=== PATIENT | female | born 1995 | race Caucasian/White ===

== ENCOUNTER 2017-01-26 23:34 | Emergency (ER) | payer SELFPAY ==
[2016-03-21 09:09] VITALS: BMI 28.7
[~2017-01-26 23:34] MED LIST: MINASTRIN FE
[2017-01-27 00:41] LABS: HEMATOCRIT 37.9 % (36.0-48.0); HEMOGLOBIN 13.1 g/dL (12-16); LYMPHOCYTES 43.1 % (15-50); MCH 30.3 pg (26.0-34.0); MCHC 34.6 g/dL (31.0-37.0); MCV 87.7 fL (80.0-100.0); MEAN PLATELET VOLUME 10.2 fL (7.4-10.4); NEUTROPHILS 48.4 % (40-80); PLATELET COUNT 186 10x3/uL (130-400); RBC 4.32 10x6/uL (4.00-5.40); RDW 12.5 % (11.5-14.5); WBC 6.8 10x3/uL (4.8-10.8)
[2017-01-27 00:55] LABS: ALBUMIN 3.5 g/dL (3.4-5.0); ALKALINE PHOSPHATASE 86 U/L (46-116); ALT (SGPT) 26 U/L (10-68); CALC OSMOLALITY 285 mosm/kg (275-300); CALCIUM 8.6 mg/dL (8.5-10.1); CARBON DIOXIDE 32.1 mmol/L (21.0-32.0); CHLORIDE - SERUM 106 mmol/L (98-107); CREATININE - SERUM 0.7 mg/dL (0.6-1.3); GLUCOSE 90 mg/dL (74-106); POTASSIUM - SERUM 3.9 mmol/L (3.5-5.1); PROTEIN - SERUM 6.5 g/dL (6.4-8.2); SODIUM 143 mmol/L (136-145); UREA NITROGEN 15 mg/dL (7-18); eGFR NON AFRICAN AMERICAN > 90 mL/min (90-120)
[2017-01-27 01:01] LABS: HCG - QUANTITATIVE (MATERNAL) 3 mIU/mL
[2017-01-27 01:29] LABS: APPEARANCE HAZY (CLEAR); BILIRUBIN NEGATIVE (NEGATIVE); COLOR YELLOW (YELLOW); GLUCOSE NEGATIVE (NEGATIVE); KETONE NEGATIVE (NEGATIVE); LEUKOCYTE ESTERASE TRACE (NEGATIVE); NITRITE NEGATIVE (NEGATIVE); PROTEIN TRACE mg/dL (NEGATIVE); SPECIFIC GRAVITY 1.025 (1.005-1.020); UROBILINOGEN NORMAL (NORMAL)
[2017-01-27 01:30] LABS: BACTERIA FEW /hpf (NONE SEEN); EPITHELIAL CELLS 0-5 /hpf (0-5); WHITE CELLS - URINE 0-5 /hpf (0-5)
== END 2017-01-27 02:17 | disposition home or self-care (01) ==
LOC: D.ER 23:34
PROVIDERS: Emergency Medicine Emergency Medical Services
DX: O20.9 Hemorrhage in early pregnancy, unspecified (principal); Z3A.01 Less than 8 weeks gestation of pregnancy; N94.6 Dysmenorrhea, unspecified

== ENCOUNTER 2017-07-23 13:29 | Emergency (ER) | payer BC ==
[2016-03-21 09:09] VITALS: BMI 28.7
[2017-07-23 17:02] LABS: APPEARANCE CLEAR (CLEAR); COLOR DK YELLOW (YELLOW); GLUCOSE NEGATIVE (NEGATIVE); NITRITE NEGATIVE (NEGATIVE); PROTEIN NEGATIVE (NEGATIVE); SPECIFIC GRAVITY 1.025 (1.005-1.020)
[2017-07-23 17:03] LABS: BILIRUBIN NEGATIVE (NEGATIVE); KETONE MODERATE mg/dL (NEGATIVE); UROBILINOGEN NORMAL (NORMAL)
[2017-07-23 17:08] LABS: BACTERIA MODERATE /hpf (NONE SEEN); MUCUS <1+ /lpf (NONE SEEN); RED CELLS - URINE 0-5 /hpf (0-5)
== END 2017-07-23 17:35 | disposition home or self-care (01) ==
LOC: D.ER 13:29
PROVIDERS: Nurse Practitioner Family
DX: O23.41 Unspecified infection of urinary tract in pregnancy, first trimester (principal); Z3A.01 Less than 8 weeks gestation of pregnancy

== ENCOUNTER → 2018-01-16 16:15 | Outpatient (CLI) | payer BC ==
[2016-03-21 09:09] VITALS: BMI 28.7
[~2018-01-16 16:15] MED LIST changes: +PRENATAL COMPLE1 TAB PO
[2018-01-16 17:09] LABS: APPEARANCE CLEAR (CLEAR); COLOR DK YELLOW (YELLOW)
[2018-01-16 17:13] LABS: BILIRUBIN NEGATIVE (NEGATIVE); GLUCOSE NEGATIVE (NEGATIVE); KETONE NEGATIVE (NEGATIVE); NITRITE NEGATIVE (NEGATIVE); PROTEIN NEGATIVE (NEGATIVE); UROBILINOGEN NORMAL (NORMAL)
[2018-01-16 17:14] LABS: BACTERIA MODERATE /hpf (NONE SEEN); EPITHELIAL CELLS 0-5 /hpf (0-5); RED CELLS - URINE 0-5 /hpf (0-5)
== END | disposition home or self-care (01) ==
LOC: D.LDO 16:15
PROVIDERS: Obstetrics & Gynecology
DX: O26.893 Other specified pregnancy related conditions, third trimester (principal); Z3A.33 33 weeks gestation of pregnancy; R10.30 Lower abdominal pain, unspecified

== ENCOUNTER → 2018-01-29 14:45 | Outpatient (CLI) | payer BC ==
[2016-03-21 09:09] VITALS: BMI 28.7
== END | disposition home or self-care (01) ==
LOC: D.LDO 14:45
DX: O36.5930 Maternal care for other known or suspected poor fetal growth, third trimester, not applicable or unspecified (principal); Z3A.34 34 weeks gestation of pregnancy

== ENCOUNTER 2018-02-01 21:59 | Outpatient (CLI) | payer BC ==
[2016-03-21 09:09] VITALS: BMI 28.7
[~2018-02-01 21:59] MED LIST changes: -PRENATAL COMPLE1 TAB PO
[2018-02-01 23:07] LABS: APPEARANCE HAZY (CLEAR); BILIRUBIN NEGATIVE (NEGATIVE); COLOR YELLOW (YELLOW); GLUCOSE NEGATIVE (NEGATIVE); KETONE NEGATIVE (NEGATIVE); NITRITE NEGATIVE (NEGATIVE); PROTEIN NEGATIVE (NEGATIVE); UROBILINOGEN NORMAL (NORMAL)
[2018-02-01 23:08] LABS: BACTERIA MANY /hpf (NONE SEEN); EPITHELIAL CELLS 0-5 /hpf (0-5); RED CELLS - URINE >50 /hpf (0-5); WHITE CELLS - URINE 0-5 /hpf (0-5)
[2018-02-01 23:09] LABS: MUCUS <1+ /lpf (NONE SEEN)
[2018-02-01 23:16] LABS: UDS - AMPHET NEGATIVE QUAL (NEGATIVE); UDS - BARB NEGATIVE QUAL (NEGATIVE); UDS - BENZO NEGATIVE QUAL (NEGATIVE); UDS - COCAINE NEGATIVE QUAL (NEGATIVE); UDS - OPIATE NEGATIVE QUAL (NEGATIVE); UDS - PCP NEGATIVE QUAL (NEGATIVE); UDS - THC NEGATIVE QUAL (NEGATIVE)
[2018-02-08] MEDS ORDERED: PRENATAL COMPLE1 TAB PO (15:36)
== END 2018-02-02 01:47 ==
LOC: D.LDO 21:59 → D.LD 23:37 → D.LDO 02-02 01:47
PROVIDERS: Obstetrics & Gynecology
DX: O26.893 Other specified pregnancy related conditions, third trimester (principal); Z3A.35 35 weeks gestation of pregnancy; R10.32 Left lower quadrant pain; M54.5 Low back pain

== ENCOUNTER → 2018-02-04 16:37 | Outpatient (CLI) | payer BC ==
[2016-03-21 09:09] VITALS: BMI 28.7
[~2018-02-04 16:37] MED LIST changes: +PRENATAL COMPLE1 TAB PO
== END | disposition home or self-care (01) ==
LOC: D.LDO 16:37
DX: O36.5930 Maternal care for other known or suspected poor fetal growth, third trimester, not applicable or unspecified (principal); Z3A.36 36 weeks gestation of pregnancy

== ENCOUNTER → 2018-02-08 14:22 | Outpatient (CLI) | payer BC ==
[2016-03-21 09:09] VITALS: BMI 28.7
== END | disposition home or self-care (01) ==
LOC: D.LDO 14:22
DX: O36.5930 Maternal care for other known or suspected poor fetal growth, third trimester, not applicable or unspecified (principal); Z3A.36 36 weeks gestation of pregnancy

== ENCOUNTER → 2018-02-11 15:26 | Outpatient (CLI) | payer BC ==
[2016-03-21 09:09] VITALS: BMI 28.7
== END | disposition home or self-care (01) ==
LOC: D.LABREF 15:26 → D.LDO 15:26
DX: O36.5930 Maternal care for other known or suspected poor fetal growth, third trimester, not applicable or unspecified (principal); Z3A.37 37 weeks gestation of pregnancy

== ENCOUNTER 2018-02-17 05:00 | Inpatient (IN) | payer BC ==
[~2018-02-17] VITALS: Ht 170.2 cm; Wt 91.2 kg
--- NOTE | ~2018-02-17 | DS ---
PATIENT:KEVIN SHOEMAKER :89 MEDICAL RECORD: [id number] DISCHARGE SUMMARY ADMISSION DATE: 02/17/18 DISCHARGE DATE: 02/19/18 The patient was admitted on 02/17/2018. HISTORY OF PRESENT ILLNESS: A 22-year-old G2, P0, at 38 weeks, admitted for induction of labor due to IUGR. The patient was noted to be O positive, group B strep unknown, rubella nonimmune. PAST MEDICAL HISTORY: The patient had a past medical history significant for Trichomonas, intrauterine growth restriction, positive history of group B strep, history of marijuana use, and mild intermittent asthma. PAST SURGICAL HISTORY: Significant for a cholecystectomy, tonsillectomy, and adenoidectomy. ALLERGIES: THE PATIENT REPORTED PENICILLIN ALLERGY. MEDICATIONS: Included vitamins. FAMILY HISTORY: Significant for cardiovascular disease, not otherwise specified. SOCIAL HISTORY: The patient reported being a daily tobacco smoker. PHYSICAL EXAMINATION: Initial assessment: VITAL SIGNS: Were found to be stable. LUNGS: Clear to auscultation. CARDIOVASCULAR: Regular rate and rhythm. The uterus was nontender. EXTREMITIES: Lower extremities were free of Homans sign. Category 1 tracing was noted with 130 heart rate tracing with moderate variability. The patient noted to have contractions upon admission. Admit urine drug screen was found to be negative. ASSESSMENT AND PLAN: 1. At that time, term intrauterine at 38 weeks. 2. Intrauterine growth restriction. 3. Positive marijuana. 4. Rubella nonimmune. 5. History of Trichomonas. 6. History of group B strep. PLAN: At that time for vancomycin for group B strep and Pitocin induction of labor with a category 1 tracing at that time. HOSPITAL COURSE: The patient made progression on Pitocin and after 4 hours from initial vancomycin dosing artificial rupture of membranes was performed with clear fluid. The patient progressed to the second stage of labor and the patient had a vacuum-assisted vaginal delivery with a left midline episiotomy. Delivery note is as on the chart. The patient did well overnight on day #0, tolerating p.o. pain meds, general diet, ambulating and voiding freely. On the morning of day #1, the patient was continuing to do well. Vital signs are stable. The patient was afebrile and normotensive. Morning DISCHARGE SUMMARY REPORT [id number] KEVIN SHOEMAKER hemoglobin was appropriate for known blood loss. Uterus was infraumbilical and appropriately tender with minimal lochia. The episiotomy site was well approximated without bleeding or signs of infection. The patient continued to do well overnight on day #1. On the morning of day #2, the patient was afebrile and normotensive. Hemoglobin was stable. Uterus was infraumbilical and appropriately tender. The patient was discharged home at 48 hours post-delivery due to the mother's known history of group B strep. The patient was instructed to follow up in 2 weeks for evaluation of the episiotomy site. TRANSINT:[id number] Voice Confirmation ID: [id number] DOCUMENT ID: [id number] COLT FULLER MD CC: [id number] DICTATION DATE: 03/13/18 0507 HEAD LINEMAN: 03/13/18 0550 DIS IN 02/19/18 [facility] [address] [place] [address]
[2018-02-17 05:53] VITALS: BP 116/58; Ht 170.2 cm; Wt 91.2 kg
[2018-02-17 06:13] LABS: UDS - AMPHET NEGATIVE QUAL (NEGATIVE); UDS - BARB NEGATIVE QUAL (NEGATIVE); UDS - BENZO NEGATIVE QUAL (NEGATIVE); UDS - COCAINE NEGATIVE QUAL (NEGATIVE); UDS - OPIATE NEGATIVE QUAL (NEGATIVE); UDS - PCP NEGATIVE QUAL (NEGATIVE); UDS - THC NEGATIVE QUAL (NEGATIVE)
[2018-02-17 07:05] LABS: APPEARANCE CLEAR (CLEAR); BACTERIA MODERATE /hpf (NONE SEEN); BILIRUBIN NEGATIVE (NEGATIVE); COLOR DK YELLOW (YELLOW); EPITHELIAL CELLS 0-5 /hpf (0-5); GLUCOSE NEGATIVE (NEGATIVE); KETONE NEGATIVE (NEGATIVE); MUCUS >1+ /lpf (NONE SEEN); NITRITE NEGATIVE (NEGATIVE); PROTEIN NEGATIVE (NEGATIVE); SPECIFIC GRAVITY 1.015 (1.005-1.020); UROBILINOGEN NORMAL (NORMAL); WHITE CELLS - URINE 0-5 /hpf (0-5)
[2018-02-17 07:21] LABS: HEMATOCRIT 34.6 % (36.0-48.0); HEMOGLOBIN 12.2 g/dL (12-16); MCH 31.6 pg (26.0-34.0); MCHC 35.3 g/dL (31.0-37.0); MCV 89.6 fL (80.0-100.0); MEAN PLATELET VOLUME 11.7 fL (7.4-10.4); RBC 3.86 10x6/uL (4.00-5.40); RDW 13.1 % (11.5-14.5)
[2018-02-18 06:17] LABS: RAPID PLASMA REAGIN Non Reactive (Non Reactive)
[2018-02-18 13:42] LABS: BASOPHILS 0.1 % (0-2); EOSINOPHILS 1.5 % (0-7); HEMATOCRIT 30.7 % (36.0-48.0); HEMOGLOBIN 10.7 g/dL (12-16); IMMATURE GRANULOCYTES 0.3 % (0-5); MCH 31.4 pg (26.0-34.0); MCHC 34.9 g/dL (31.0-37.0); MEAN PLATELET VOLUME 11.6 fL (7.4-10.4); MONOCYTES 6.2 % (2-11); NEUTROPHILS 77.9 % (40-80); PLATELET COUNT 181 10x3/uL (130-400); RBC 3.41 10x6/uL (4.00-5.40); RDW 13.1 % (11.5-14.5)
[2018-02-18 13:44] LABS: WBC 13.8 10x3/uL (4.8-10.8)
[2018-02-18 20:02] VITALS: BP 117/60
[2018-02-19 08:00] VITALS: BP 110/73
== END 2018-02-19 17:00 | disposition home or self-care (01) | DRG 774 ==
LOC: D.LD 05:00
PROVIDERS: Obstetrics & Gynecology
PROC: 10D07Z6 Extraction of Products of Conception, Vacuum, Via Natural or Artificial Opening (ICD-10-PCS; principal; 2018-02-17)
DX: O99.824 Streptococcus B carrier state complicating childbirth (principal); O98.32 Other infections with a predominantly sexual mode of transmission complicating childbirth; Z3A.38 38 weeks gestation of pregnancy; Z37.0 Single live birth; O36.5930 Maternal care for other known or suspected poor fetal growth, third trimester, not applicable or unspecified; O99.324 Drug use complicating childbirth; F12.90 Cannabis use, unspecified, uncomplicated; A59.9 Trichomoniasis, unspecified

== ENCOUNTER 2018-03-21 04:46 | Emergency (ER) | payer BC ==
[~2018-03-21] VITALS: Ht 170.2 cm; Wt 82.3 kg
[2018-03-21 04:51] VITALS: Ht 170.2 cm; Wt 82.3 kg
[2018-03-21 05:38] VITALS: BP 116/70
== END 2018-03-21 05:39 | disposition home or self-care (01) ==
LOC: D.ER 04:46
DX: R51 Headache (principal); F17.200 Nicotine dependence, unspecified, uncomplicated